=== PATIENT | female | born 1935 | race Caucasian/White ===

== ENCOUNTER 2016-07-26 14:54 | Inpatient (IN) | payer MEDICAID ==
[~2016-07-26] VITALS: Ht 152.4 cm; Wt 59.9 kg
[2016-07-26] MEDS ORDERED: SODIUM CHLORIDE 0.9% 500 ML IV ONE (15:29)
[2016-07-26 15:52] LABS: BASOPHILS % 0.6 % (0.0-2.0); EOSINOPHILS % 2.8 % (0.0-5.0); HEMATOCRIT. 32.5 % (36.0-48.0); HEMOGLOBIN. 10.7 g/dL (12.0-16.0); MEAN CORPUSCULAR HEMOGLOBIN 27.7 pg (28.0-32.0); MEAN CORPUSCULAR VOLUME 83.8 fL (81.0-99.0); MEAN PLATELET VOLUME 8.2 fl (7.4-10.4); MONOCYTES % 7.2 % (2.0-8.0); NEUTROPHILS % 69.4 % (40.0-76.0); PLATELET 322 x1000/uL (130-400); RED BLOOD CELL COUNT 3.88 mill/uL (4.2-5.4); RED CELL DISTRIBUTION WIDTH 16.2 % (11.6-14.6)
[2016-07-26 15:54] LABS: CHLORIDE 92 mEq/L (98-107)
[2016-07-26 15:56] LABS: PROTHROMBIN TIME 10.2 sec
[2016-07-26 16:06] LABS: CARBON DIOXIDE 24 mEq/L (21-32)
[2016-07-26] MEDS ORDERED: SODIUM CHLORIDE 0.9% 1,000 ML IV ONE ×2 (16:10→18:40)
[2016-07-26] MEDS ORDERED: VANCOMYCIN 1 G PREMIX 200 ML IV SCH (16:15)
[2016-07-26] MEDS ORDERED: PIPERACILLIN/TAZOBACTAM 3.375GM/50ML PREMIX IV ONE (16:15)
[2016-07-26] MEDS ORDERED: PIPERACILLIN/TAZ 3.375G PREMIX 50 ML IV NR (16:15)
[2016-07-26 17:06] LABS: CLARITY URINE CLOUDY (CLEAR); COLOR URINE YELLOW (YELLOW); GLUCOSE URINE 2+ (NEGATIVE); KETONES URINE NEGATIVE (NEGATIVE); LEUKOCYTE ESTERASE URINE 3+ (NEGATIVE); NITRITE URINE NEGATIVE (NEGATIVE); OCCULT BLOOD URINE NEGATIVE (NEGATIVE); PROTEIN URINE NEGATIVE (NEGATIVE); UROBILINOGEN URINE 0.2 E.U./dL (0.2-1.0)
[2016-07-26] MEDS ORDERED: MAGNESIUM/ALUMINUM HYDROXIDE/SIMETHICONE 30ML UDC PO PRN (23:00)
[2016-07-26] MEDS ORDERED: NA PHOS,M-B/NA PHOS,DI-BA ENEMA 118ML PR PRN (23:00)
[2016-07-26] MEDS ORDERED: DIPHENHYDRAMINE 50MG/ML VIAL IV PRN (23:00)
[2016-07-26] MEDS ORDERED: HYDROMORPHONE HCL/PF 2MG/ML CPJ IV PRN (23:00)
[2016-07-26] MEDS ORDERED: IPRATROPIUM/ALBUTEROL 0.5-3(2.5)MG/3ML NEB INH PRN (23:00)
[2016-07-26] MEDS ORDERED: GUAIFENESIN 200MG/10ML SUGAR FREE UDC PO PRN (23:00)
[2016-07-26] MEDS ORDERED: ACETAMINOPHEN 325MG TABLET PO PRN (23:00)
[2016-07-26] MEDS ORDERED: LORAZEPAM 2MG/ML CPJ IV PRN (23:00)
[2016-07-26] MEDS ORDERED: ONDANSETRON HCL 4MG/2ML VIAL IV PRN (23:00)
[2016-07-26] MEDS ORDERED: HYDROCODONE/ACETAMINOPHEN 5/325MG TABLET PO PRN (23:00)
[2016-07-26] MEDS ORDERED: DOCUSATE SODIUM 100MG CAPSULE PO PRN (23:00)
[2016-07-26] MEDS ORDERED: DEXTROSE 50% WATER 50ML SYRINGE IV PRN (23:45)
[2016-07-27] VITALS (7 sets, daily range): BP systolic 99–165; BP diastolic 59–91
[2016-07-27] MEDS: SODIUM CHLORIDE 0.9% 1,000 ML IV SCH ×3 (01:32→21:02)
[2016-07-27] MEDS ORDERED: LEVOFLOXACIN 500MG PREMIX 100 ML IV NR (02:00)
[2016-07-27 02:10] LABS: CARBON DIOXIDE 22 mEq/L (21-32); CHLORIDE 102 mEq/L (98-107)
[2016-07-27] MEDS ORDERED: METF10002 PO (05:41)
[2016-07-27] MEDS ORDERED: MECL-109 PO (05:41)
[2016-07-27] MEDS ORDERED: GABA800T PO (05:41)
[2016-07-27] MEDS ORDERED: CLOP75TA33 PO (05:41)
[2016-07-27] MEDS ORDERED: ATOR20TA65 PO (05:41)
[2016-07-27] MEDS ORDERED: METO25TA6 PO (05:41)
[2016-07-27] MEDS ORDERED: OMEP40CA34 PO (05:41)
[2016-07-27] MEDS ORDERED: ASPI-986 PO (05:41)
[2016-07-27 05:59] LABS: BASOPHILS % 0.7 % (0.0-2.0); HEMATOCRIT. 33.8 % (36.0-48.0); HEMOGLOBIN. 11.1 g/dL (12.0-16.0); LYMPHOCYTES % 20.3 % (20.0-50.0); MEAN CORPUSCULAR HEMOGLOBIN 27.2 pg (28.0-32.0); MEAN PLATELET VOLUME 8.2 fl (7.4-10.4); MONOCYTES % 6.6 % (2.0-8.0); NEUTROPHILS % 69.4 % (40.0-76.0); PLATELET 360 x1000/uL (130-400); RED BLOOD CELL COUNT 4.07 mill/uL (4.2-5.4); RED CELL DISTRIBUTION WIDTH 16.1 % (11.6-14.6)
[2016-07-27] MEDS: BLOOD SUGAR DIAGNOSTIC STRIP TEST SCH ×4 (06:12→21:02)
[2016-07-27] MEDS: INSULIN LISPRO 100 UNITS/ML SUBCUT SCH ×4 (06:31→21:09)
[2016-07-27 07:30] LABS: CARBON DIOXIDE 25 mEq/L (21-32); CHLORIDE 104 mEq/L (98-107)
[2016-07-27 07:35] LABS: HDL CHOLESTEROL 58 mg/dL (40-59); LDL CHOLESTEROL 49 mg/dL (5-100); TROPONIN I 0.04 ng/mL (0.00-0.04)
[2016-07-27] MEDS: ASPIRIN 81MG EC TABLET PO SCH (08:11)
[2016-07-27] MEDS: CLONIDINE 0.1MG TABLET PO PRN (17:16)
[2016-07-28] VITALS: BP 132/83
[2016-07-28] MEDS: LEVOFLOXACIN 250MG PREMIX 50 ML IV SCH (01:33)
[2016-07-28 04:00] VITALS: BP 121/70
[2016-07-28] MEDS: BLOOD SUGAR DIAGNOSTIC STRIP TEST SCH ×4 (06:07→21:11)
[2016-07-28] MEDS: INSULIN LISPRO 100 UNITS/ML SUBCUT SCH ×4 (06:08→21:34)
[2016-07-28 06:41] LABS: BASOPHILS % 0.6 % (0.0-2.0); EOSINOPHILS % 3.5 % (0.0-5.0); HEMATOCRIT. 33.1 % (36.0-48.0); HEMOGLOBIN. 10.8 g/dL (12.0-16.0); LYMPHOCYTES % 23.6 % (20.0-50.0); MEAN PLATELET VOLUME 8.1 fl (7.4-10.4); MONOCYTES % 6.9 % (2.0-8.0); NEUTROPHILS % 65.4 % (40.0-76.0); PLATELET 362 x1000/uL (130-400); RED BLOOD CELL COUNT 3.98 mill/uL (4.2-5.4); RED CELL DISTRIBUTION WIDTH 16.6 % (11.6-14.6)
[2016-07-28 07:57] LABS: CARBON DIOXIDE 27 mEq/L (21-32); CHLORIDE 102 mEq/L (98-107); TROPONIN I 0.04 ng/mL (0.00-0.04)
[2016-07-28 08:00] VITALS: BP 178/73
[2016-07-28] MEDS: MECLIZINE 25MG TABLET PO SCH (08:33)
[2016-07-28] MEDS: ASPIRIN 325MG TABLET PO SCH (08:33)
[2016-07-28] MEDS: CLOPIDOGREL 75MG TABLET PO SCH (08:34)
[2016-07-28] MEDS: METOPROLOL TARTRATE 25MG TABLET PO SCH (08:34)
[2016-07-28] MEDS: ASPIRIN 81MG EC TABLET PO SCH (08:34)
[2016-07-28] MEDS: CLONIDINE 0.1MG TABLET PO PRN ×2 (12:19→17:00)
[2016-07-28 12:30] VITALS: BP 188/77
[2016-07-28] MEDS: AMLODIPINE 5MG TABLET PO SCH ×2 (12:56→21:24)
[2016-07-28] MEDS ORDERED: ALPRAZOLAM 0.25 MG TABLET PO PRN (13:15)
[2016-07-28 16:00] VITALS: BP 179/60
[2016-07-28 20:00] VITALS: BP 127/75
[2016-07-28] MEDS ORDERED: ATORVASTATIN CALCIUM 20MG TABLET PO SCH (21:00)
[2016-07-29] VITALS: BP 117/67
[2016-07-29] MEDS: LEVOFLOXACIN 250MG PREMIX 50 ML IV SCH (02:02)
[2016-07-29 04:00] VITALS: BP 113/66
[2016-07-29] MEDS: BLOOD SUGAR DIAGNOSTIC STRIP TEST SCH (06:22)
[2016-07-29] MEDS: INSULIN LISPRO 100 UNITS/ML SUBCUT SCH (06:22)
[2016-07-29 08:30] VITALS: BP 111/65
[2016-07-29] MEDS: ASPIRIN 325MG TABLET PO SCH (09:02)
[2016-07-29] MEDS: CLOPIDOGREL 75MG TABLET PO SCH (09:02)
[2016-07-29] MEDS: ASPIRIN 81MG EC TABLET PO SCH (09:02)
[2016-07-29] MEDS: MECLIZINE 25MG TABLET PO SCH (09:15)
[2016-07-29] MEDS: AMLODIPINE 5MG TABLET PO SCH (09:15)
[2016-07-29] MEDS: METOPROLOL TARTRATE 25MG TABLET PO SCH (09:19)
[2016-07-29 10:40] VITALS: BP 110/70
== END 2016-07-29 11:00 | disposition home or self-care (01) | DRG 720 ==
LOC: ER 14:55 → EDBEDREQ 15:15 → 5WST 18:51 → EDBEDREQ 18:53 → EDBEDREQSVC 18:53 → ENRESERV 22:16
PROVIDERS: ADMIT Internal Medicine; ATTEND Internal Medicine
DX: A41.9 Sepsis, unspecified organism (principal); G93.40 Encephalopathy, unspecified; E46 Unspecified protein-calorie malnutrition; I42.9 Cardiomyopathy, unspecified; I11.0 Hypertensive heart disease with heart failure; I50.22 Chronic systolic (congestive) heart failure; E86.0 Dehydration; I95.2 Hypotension due to drugs; E87.1 Hypo-osmolality and hyponatremia; T50.2X5A Adverse effect of carbonic-anhydrase inhibitors, benzothiadiazides and other diuretics, initial encounter; E11.9 Type 2 diabetes mellitus without complications; T50.995A Adverse effect of other drugs, medicaments and biological substances, initial encounter; E87.6 Hypokalemia; I25.10 Atherosclerotic heart disease of native coronary artery without angina pectoris; N39.0 Urinary tract infection, site not specified; I25.2 Old myocardial infarction; Z86.73 Personal history of transient ischemic attack (TIA), and cerebral infarction without residual deficits; Z95.1 Presence of aortocoronary bypass graft; Z95.5 Presence of coronary angioplasty implant and graft; Z95.810 Presence of automatic (implantable) cardiac defibrillator; Z68.25 Body mass index [BMI] 25.0-25.9, adult; Y92.89 Other specified places as the place of occurrence of the external cause
CPT/HCPCS: 36415; 71010; 80048; 80053; 80061; 81001; 82962; 83605; 84484; 85025; 85610; 87040; 87077; 87086; 87186; 93005; 93306; 96361; 96365; 96366; 96367; 99285; J1815; J1956; J2543; J3370; J7030; J7040; J8597

== ENCOUNTER 2016-11-15 18:01 | Inpatient (IN) | payer MEDICAID ==
[~2016-11-15] VITALS: Ht 152.4 cm; Wt 61.2 kg
[~2016-11-15 18:01] MED LIST: ASPI-986 PO; ATOR20TA65 PO; CLOP75TA33 PO; GABA800T PO; MECL-109 PO; METF10002 PO; METO25TA6 PO; OMEP40CA34 PO
[2016-11-15 23:15] LABS: BASOPHILS % 0.6 % (0.0-2.0); EOSINOPHILS % 3.9 % (0.0-5.0); HEMATOCRIT. 32.4 % (36.0-48.0); HEMOGLOBIN. 10.6 g/dL (12.0-16.0); LYMPHOCYTES % 28.9 % (20.0-50.0); MEAN CORPUSCULAR HEMOGLOBIN 27.5 pg (28.0-32.0); MEAN CORPUSCULAR VOLUME 83.8 fL (81.0-99.0); MEAN PLATELET VOLUME 7.5 fl (7.4-10.4); MONOCYTES % 7.4 % (2.0-8.0); NEUTROPHILS % 59.2 % (40.0-76.0); PLATELET 277 x1000/uL (130-400); RED BLOOD CELL COUNT 3.86 mill/uL (4.2-5.4)
[2016-11-15 23:25] LABS: PARTIAL THROMBOPLASTIN TIME 26.1 sec (23.4-31.0); PROTHROMBIN TIME 10.3 sec (9.4-11.6)
[2016-11-15 23:32] LABS: CARBON DIOXIDE 25 mEq/L (21-32); CHLORIDE 95 mEq/L (98-107); TROPONIN I 0.02 ng/mL (0.00-0.04)
[2016-11-16 01:55] LABS: CLARITY URINE CLEAR (CLEAR); COLOR URINE YELLOW (YELLOW); GLUCOSE URINE NEGATIVE (NEGATIVE); KETONES URINE NEGATIVE (NEGATIVE); LEUKOCYTE ESTERASE URINE 2+ (NEGATIVE); NITRITE URINE NEGATIVE (NEGATIVE); OCCULT BLOOD URINE NEGATIVE (NEGATIVE); PH URINE 5.5 (4.5-8.0); PROTEIN URINE NEGATIVE (NEGATIVE); SPECIFIC GRAVITY URINE 1.009 (1.005-1.030); UROBILINOGEN URINE 0.2 E.U./dL (0.2-1.0)
[2016-11-16 10:00] VITALS: BP 148/60
[2016-11-16 10:10] VITALS: BP 148/60
[2016-11-16] MEDS ORDERED: DEXTROSE 50% WATER 50ML SYRINGE IV PRN (10:30)
[2016-11-16] MEDS: SODIUM CHLORIDE 0.9% 1,000 ML IV SCH ×2 (10:30→23:48)
[2016-11-16] MEDS ORDERED: GABAPENTIN 800 MG PO SCH (10:45)
[2016-11-16] MEDS ORDERED: MEDICATION NOT ON FORMULARY EA (Omeprazole 40 MG) PO SCH (10:45)
[2016-11-16] MEDS: ASPIRIN 325MG TABLET PO SCH (11:10)
[2016-11-16] MEDS: OMEPRAZOLE 20MG CAPSULE EXTENDED RELEASE PO SCH (11:10)
[2016-11-16] MEDS: CLOPIDOGREL 75MG TABLET PO SCH (11:10)
[2016-11-16] MEDS: MECLIZINE 25MG TABLET PO SCH (11:10)
[2016-11-16] MEDS: METOPROLOL TARTRATE 25MG TABLET PO SCH ×2 (11:11→21:12)
[2016-11-16] MEDS ORDERED: SITA100T11 PO (11:43)
[2016-11-16] MEDS ORDERED: Vit D2 PO (11:43)
[2016-11-16] MEDS ORDERED: ALPR-392 PO (11:43)
[2016-11-16] MEDS ORDERED: HYDR-4134 PO (11:43)
[2016-11-16 12:00] VITALS: BP 154/54
[2016-11-16] MEDS ORDERED: HYDROCODONE/ACETAMINOPHEN 10/325MG TABLET PO PRN (12:00)
[2016-11-16] MEDS: CEFTRIAXONE 1,000 MG in DEXTROSE 5% WATER 50 ML IV SCH (12:00)
[2016-11-16] MEDS: BLOOD SUGAR DIAGNOSTIC STRIP TEST SCH ×3 (12:40→21:00)
[2016-11-16] MEDS: INSULIN LISPRO 100 UNITS/ML SUBCUT SCH ×3 (12:54→21:00)
[2016-11-16 16:00] VITALS: BP 140/44
[2016-11-16 20:00] VITALS: BP 149/53
[2016-11-16] MEDS ORDERED: PNEUMOCOCCAL 23-VAL P-SAC VAC 0.5 ML IM ONE (20:00)
[2016-11-16] MEDS: ALPRAZOLAM 0.25 MG TABLET PO SCH (21:12)
[2016-11-16] MEDS: ATORVASTATIN CALCIUM 20MG TABLET PO SCH (21:13)
[2016-11-17 00:05] VITALS: BP 124/55
[2016-11-17 04:00] VITALS: BP 136/66
[2016-11-17 07:34] LABS: HEMATOCRIT 34.7 % (36.0-48.0); HEMOGLOBIN 11.4 g/dL (12.0-16.0); MEAN CORPUSCULAR HEMOGLOBIN 27.4 pg (28.0-32.0); PLATELET 294 x1000/uL (130-400); RED BLOOD CELL COUNT 4.18 mill/uL (4.2-5.4); RED CELL DISTRIBUTION WIDTH 16.8 % (11.6-14.6)
[2016-11-17] MEDS: BLOOD SUGAR DIAGNOSTIC STRIP TEST SCH ×4 (07:40→20:42)
[2016-11-17 08:00] VITALS: BP 163/47
[2016-11-17] MEDS: INSULIN LISPRO 100 UNITS/ML SUBCUT SCH ×4 (08:10→20:50)
[2016-11-17] MEDS: ALPRAZOLAM 0.25 MG TABLET PO SCH ×3 (09:00→17:45)
[2016-11-17] MEDS: MECLIZINE 25MG TABLET PO SCH (09:04)
[2016-11-17] MEDS: ASPIRIN 325MG TABLET PO SCH (09:04)
[2016-11-17] MEDS: CLOPIDOGREL 75MG TABLET PO SCH (09:04)
[2016-11-17] MEDS: OMEPRAZOLE 20MG CAPSULE EXTENDED RELEASE PO SCH (09:06)
[2016-11-17] MEDS: METOPROLOL TARTRATE 25MG TABLET PO SCH ×2 (09:06→20:39)
[2016-11-17 09:25] LABS: CARBON DIOXIDE 28 mEq/L (21-32); CHLORIDE 102 mEq/L (98-107)
[2016-11-17] MEDS: CEFTRIAXONE 1,000 MG in DEXTROSE 5% WATER 50 ML IV SCH (11:29)
[2016-11-17 12:00] VITALS: BP 134/56
[2016-11-17] MEDS: SODIUM CHLORIDE 0.9% 1,000 ML IV SCH (14:54)
[2016-11-17 16:00] VITALS: BP 161/58
[2016-11-17 20:00] VITALS: BP 144/55
[2016-11-17] MEDS: ATORVASTATIN CALCIUM 20MG TABLET PO SCH (20:39)
[2016-11-18] VITALS (8 sets, daily range): BP systolic 130–172; BP diastolic 42–62
[2016-11-18] MEDS: SODIUM CHLORIDE 0.9% 1,000 ML IV SCH (02:12)
[2016-11-18] MEDS: BLOOD SUGAR DIAGNOSTIC STRIP TEST SCH ×2 (07:40→12:27)
[2016-11-18] MEDS ORDERED: FAMOTIDINE 20MG TABLET PO SCH (07:40)
[2016-11-18] MEDS: INSULIN LISPRO 100 UNITS/ML SUBCUT SCH ×2 (08:10→14:10)
[2016-11-18] MEDS: ALPRAZOLAM 0.25 MG TABLET PO SCH (09:00)
[2016-11-18] MEDS: CLOPIDOGREL 75MG TABLET PO SCH (09:43)
[2016-11-18] MEDS: ASPIRIN 325MG TABLET PO SCH (09:43)
[2016-11-18] MEDS: MECLIZINE 25MG TABLET PO SCH (09:43)
[2016-11-18] MEDS: METOPROLOL TARTRATE 25MG TABLET PO SCH (09:45)
[2016-11-18] MEDS ORDERED: SULF1TAB48 PO (10:41)
[2016-11-18] MEDS ORDERED: TRAM50TA3 PO (10:41)
[2016-11-18] MEDS ORDERED: CLONIDINE 0.1MG TABLET PO PRN (12:00)
[2016-11-18] MEDS: CEFTRIAXONE 1,000 MG in DEXTROSE 5% WATER 50 ML IV SCH (12:19)
[2016-11-19] MEDS ORDERED: CEFTRIAXONE 1 G PREMIX 50 ML IV SCH (12:00)
== END 2016-11-18 16:15 | disposition home or self-care (01) | DRG 720 ==
LOC: ER 18:06 → 7WST 11-16 03:14 → ENRESERV 11-16 08:47
PROVIDERS: ADMIT Internal Medicine; ATTEND Internal Medicine
DX: A41.9 Sepsis, unspecified organism (principal); N39.0 Urinary tract infection, site not specified; E11.9 Type 2 diabetes mellitus without complications; E44.1 Mild protein-calorie malnutrition; I10 Essential (primary) hypertension; M54.2 Cervicalgia; E78.00 Pure hypercholesterolemia, unspecified; Z87.440 Personal history of urinary (tract) infections; Z79.899 Other long term (current) drug therapy
CPT/HCPCS: 36415; 70450; 71010; 80053; 80061; 81001; 82962; 83036; 83690; 84443; 84484; 85025; 85027; 85610; 85730; 87040; 87086; 93005; 93970; 97110; 97166; 99285; J0696; J1815; J7030; J7060; J8597